=== PATIENT | female | born 1950 | race Two or more races ===

== ENCOUNTER → 2024-05-29 | Outpatient (CLI) | payer OTHER, SELFPAY ==
[2024-05-29 09:09] LABS: Basophils % (Auto) 0 % (0-2.5); Eosinophils % (Auto) 1 % (0-10); Hematocrit 45.6 % (36.0-46.0); Hemoglobin 14.9 g/dL (12.0-16.0); Immature Granulocytes % (Auto) 1 % (0-0); Immature Granulocytes Auto 0.03 Thou/mm3 (0.00-0.00); Lymphocytes # (Auto) 0.9 Thou/mm3 (1.0-4.8); Lymphocytes % (Auto) 17 % (10-50); Mean Corpuscular HGB Conc 32.7 g/dl (31.0-37.0); Mean Corpuscular Hemoglobin 28.7 pg (25.0-35.0); Mean Corpuscular Volume 88 fL (80-100); Monocytes # (Auto) 0.7 Thou/mm3 (0.0-0.8); Monocytes % (Auto) 14 % (0-12); Neutrophils # (Auto) 3.4 Thou/mm3 (1.8-7.7); Neutrophils % (Auto) 68 % (37-80); Nucleated Red Blood Cell % 0 /100 WBC (0); Platelet Count 139 Thou/mm3 (140-440); RDW Standard Deviation 48.3 fL (36.4-46.3)
[2024-05-29 09:32] LABS: Glucose Estimated Average 114 mg/dL (80-131); Hemoglobin A1C 5.6 % Hgb (4.8-6.0)
[2024-05-29 09:37] LABS: Vitamin B12 524 pg/mL (211-911)
[2024-05-29 09:43] LABS: Alanine Aminotransferase 17 U/L (10-49); Albumin, Serum 4.6 gm/dL (3.4-4.8); Albumin/Globulin Ratio 2.2 (1.2-2.2); Alkaline Phosphatase 93 U/L (46-116); Anion Gap 7 (7-16); Aspartate Amino Transferase 13 U/L (0-34); BUN/Creatinine Ratio 16 Ratio (12-20); Bilirubin,Total 0.6 mg/dL (0.3-1.2); Blood Urea Nitrogen 11 mg/dL (9-23); Calcium 9.7 mg/dL (8.3-10.6); Calcium (Corrected) 9.7 mg/dL (8.5-10.1); Cardiac Risk Estimate 2.7 RATIO (3.7-5.6); Chloride 103 mMol/L (98-107); Cholesterol 173 mg/dL (132-200); Creatinine (Component) 0.7 mg/dL (0.6-1.3); Free T4 (Free Thyroxine) 1.16 ng/dL (0.89-1.76); Globulin 2.1 gm/dL (2.3-3.5); Glucose 109 mg/dL (74-106); HDL Cholesterol 63 mg/dL (40-60); LDL Cholesterol,Calculated 91 mg/dL (0-130); Osmolality,Calculated 277 (275-295); Potassium 3.7 mMol/L (3.4-5.1); Sodium 139 mMol/L (136-145); Thyroid Stimulating Hormone 0.82 uIU/mL (0.55-4.78); Total Protein 6.7 gm/dL (5.7-8.2); Triglycerides 97 mg/dL (30-150); eGFR > 60 See Note
== END | disposition home or self-care (01) ==
LOC: COPL 08:07
PROVIDERS: PCP Family Medicine; Referring Provider Psychiatry & Neurology Neurology; Visit Provider Psychiatry & Neurology Neurology
DX: R41.3 Other amnesia (principal); I10 Essential (primary) hypertension; E78.5 Hyperlipidemia, unspecified
CPT/HCPCS: 36415; 80053; 80061; 82306; 82607; 83036; 84439; 84443; 85025

== ENCOUNTER → 2024-06-25 | Outpatient (CLI) | payer OTHER, SELFPAY ==
--- NOTE | 2024-06-25 10:38 | XR_ITS ---
Examination: MRI brain without intravenous contrast. Date and time of exam: June 25, 2024 1138 hrs. Indications: Increasing confusion one year Technique: Multiple axial and sagittal images of the brain obtained. Siemens high-resolution 1.5 Jennifer short bore scanners utilized. Sagittal sections, T1-weighted, TR 500, TE 14, are performed. Axial sections proton-density and T2-weighted have been obtained. Inversion recovery axial images, TR 9, 260, TE 111, TI 2500. Diffusion weighted images, axial sections, TR 4800, TE 128, B value 1000 Axial sections, ADC map, TR 4800, TE 128 Findings: Enlargement of the sella turcica is not present. The optic chiasm and infundibular are not remarkable. Prepontine and interpeduncular cisterns are not enlarged. There is no localized enlargement of the medulla or deondre. Fourth ventricle and cerebellar tonsils appear normal in position. No subacute area of hemorrhage density is seen. Mass in the cerebellopontine angle region is not evident. Globes symmetrical. Orbital musculature including medial lateral rectus muscles do not exhibit abnormality. Diffusion-weighted images demonstrate no focus of restricted diffusion. Increased white matter signal moderate Mass effect upon the ventricular system is not identified. Impression: Negative for acute hemorrhage mass effect or midline shift No acute infarct Moderate chronic microvascular white matter change
== END | disposition home or self-care (01) ==
LOC: SMRI 10:22
PROVIDERS: PCP Family Medicine; Referring Provider Psychiatry & Neurology Neurology; Visit Provider Psychiatry & Neurology Neurology
DX: R90.82 White matter disease, unspecified (principal)
CPT/HCPCS: 70551

== ENCOUNTER → 2024-11-20 | Outpatient (CLI) | payer OTHER, SELFPAY ==
[2024-11-20 16:28] LABS: Alanine Aminotransferase 48 U/L (10-49); Albumin, Serum 4.2 gm/dL (3.4-4.8); Albumin/Globulin Ratio 1.7 (1.2-2.2); Alkaline Phosphatase 135 U/L (46-116); Anion Gap 9 (7-16); Aspartate Amino Transferase 26 U/L (0-34); BUN/Creatinine Ratio 16 Ratio (12-20); Bilirubin,Total 0.4 mg/dL (0.3-1.2); Blood Urea Nitrogen 14 mg/dL (9-23); Calcium 9.4 mg/dL (8.3-10.6); Calcium (Corrected) 9.4 mg/dL (8.5-10.1); Carbon Dioxide 27.0 mMol/L (20.0-31.0); Chloride 108 mMol/L (98-107); Creatinine (Component) 0.9 mg/dL (0.6-1.3); Globulin 2.5 gm/dL (2.3-3.5); Glucose 88 mg/dL (74-106); Osmolality,Calculated 286 (275-295); Potassium 3.9 mMol/L (3.4-5.1); Sodium 144 mMol/L (136-145); Total Protein 6.7 gm/dL (5.7-8.2); eGFR > 60 See Note
== END | disposition home or self-care (01) ==
LOC: COPL 15:18
PROVIDERS: PCP Family Medicine; Referring Provider Psychiatry & Neurology Neurology; Visit Provider Psychiatry & Neurology Neurology
DX: Z01.89 Encounter for other specified special examinations (principal)
CPT/HCPCS: 36415; 80053

== ENCOUNTER 2025-01-29 07:28 | Emergency (ER) | payer OTHER, SELFPAY ==
[2025-01-29 07:39] VITALS: BP 152/82; PULSE 70; RESP 18; TEMP 36.4; O2SAT 97; BMI 25.7
--- NOTE | 2025-01-29 07:49 | XR_ITS ---
Examination: Ribs, right, with PA chest, 5 views Technique: Chest PA, RIBS AP, RPO, LPO, AP coned lower ribs 5 views Exam date and time: January 29, 2025, 0752 hours INDICATIONS: Patient fell 2 days ago with injury to the right chest, right rib pain Findings: Normal heart size No pneumothorax. Moderate osteopenia Acute fracture right eighth rib posteriorly IMPRESSION: No pneumothorax. Acute nondisplaced fracture right eighth rib posteriorly
--- NOTE | 2025-01-29 07:49 | XR_ITS ---
Examination: Thoracic spine 3 views TECHNIQUE: AP lateral coned lateral upper dorsal spine 3 views Date and time: January 29, 2025, 0752 hours INDICATIONS: Patient fell 2 days ago with injury to the back, mid back pain. FINDINGS: Adequate alignment thoracic vertebral bodies on the lateral view Minimal wedging T4 vertebral body IMPRESSION: Mild compression T4 vertebral body As clinically warranted, consider CT scan thoracic spine without contrast follow-up
--- NOTE | 2025-01-29 07:58 | PD.EDFALL ---
ED Fall Injury RME/HPI General Chief Complaint: Fall Stated Complaint: FALL; PAIN R) LOWER BACK Time Seen by Provider: 01/29/25 07:35 Source: patient Arrival date/time: 01/29/25 07:28 74-year-old female with a history of hyperlipidemia, hypertension presents to the emergency room with a chief complaint of thoracic back pain and right sided rib pain after a ground-level fall that occurred 2 days ago. Patient denies any head injury. Mode of arrival: ambulatory Limitations: no limitations Related Data Home Medications ?Medication ?Instructions ?Recorded ?Confirmed lisinopril 5 mg tablet 5 mg PO QDAY #0 tabs 09/20/15 04/15/21 atorvastatin 40 mg tablet 40 mg PO HS 04/10/20 04/15/21 Previous Rx's ?Medication ?Instructions ?Recorded ibuprofen 600 mg tablet 600 mg PO Q8H PRN fever or pain 01/29/25 #20 tabs Allergies Allergy/AdvReac Type Severity Reaction Status Date / Time No Known Allergies Allergy Verified 01/29/25 07:33 Review of Systems Review of Systems Systems Reviewed: All systems reviewed, normal except as documented Constitutional Constitutional: Reports system reviewed and no additional complaints, except as documented, Denies fatigue, Denies fever(s), Denies headache(s) and Denies weakness Eyes Eyes: Reports system reviewed and no additional complaints, except as documented, Denies blurry vision and Denies change in vision ENT Ears, Nose, Mouth, and Throat: Reports system reviewed and no additional complaints, except as documented, Denies otalgia, Denies headache(s), Denies nasal congestion, Denies throat swelling and Denies vertigo Cardiovascular Cardiovascular: Reports system reviewed and no additional complaints, except as documented, Denies chest pain, Denies dyspnea and Denies dyspnea on exertion Respiratory Respiratory: Reports system reviewed and no additional complaints, except as documented, Denies chest congestion, Denies cough, Denies dyspnea, Denies dyspnea on exertion and Denies wheezing Gastrointestinal Gastrointestinal: Reports system reviewed and no additional complaints, except as documented, Denies abdominal pain, Denies cramping, Denies nausea and Denies vomiting Genitourinary Genitourinary: Reports system reviewed and no additional complaints, except as documented Musculoskeletal Musculoskeletal: Reports system reviewed and no additional complaints, except as documented and Denies back pain Integumentary/Breasts Skin/Breast: Reports system reviewed and no additional complaints, except as documented and Denies wounds Neurologic Neurologic: Reports system reviewed and no additional complaints, except as documented, Denies confusion, Denies headache(s), Denies lack of coordination, Denies vertigo and Denies weakness Psychiatric Psychiatric: Reports system reviewed and no additional complaints, except as documented, Denies anxiety, Denies confusion, Denies depression, Denies paranoia, Denies suicidal ideation and Denies tactile hallucinations Endocrine Endocrine: Reports system reviewed and no additional complaints, except as documented and Denies fatigue Hematologic/Lymphatic Hematologic/Lymphatic: Reports system reviewed and no additional complaints, except as documented and Denies lymphadenopathy Allergic/Immunologic Allergic/Immunologic: Reports system reviewed and no additional complaints, except as documented, Denies throat swelling, Denies urticaria and Denies wheezing ED Exam General Limitations: Present no limitations General appearance: Present alert and in no apparent distress Head Head exam: Present atraumatic Eye Eye exam: Present normal appearance, PERRL and EOMI ENT ENT exam: Present normal exam, normal oropharynx and mucous membranes moist Neck Neck exam: Present normal inspection, full ROM and trachea midline Chest Chest inspection: Present normal inspection and symmetric chest wall rise Expanded Chest Exam Trauma: Absent crepitus, laceration, abrasion, ecchymosis, wound, penetrating wound or surgical incision Breast: right: tenderness Respiratory Respiratory exam: Present normal lung sounds bilaterally; Absent respiratory distress, wheezes, stridor, accessory muscle use or prolonged expiratory phase Cardiovascular Cardiovascular exam: Present regular rate, normal rhythm and normal heart sounds Abdominal Exam Abdominal exam: Present soft and normal bowel sounds Extremities Exam Extremities exam: Present normal inspection and full ROM Back Exam Back exam: Present normal inspection and full ROM Neurological Exam Neurological exam: Present alert, oriented X3 and CN II-XII intact Psychiatric Psychiatric exam: Present normal affect and normal mood Skin Skin exam: Present warm, dry, intact and normal color Course Quality Measures none Orders Category Date Time Status XR ribs RT min 3V w CXR1V Stat Exams 01/29/25 07:49 Completed XR thoracic spine 3V Stat Exams 01/29/25 07:49 Completed Ibuprofen Tab [Motrin Tab] Med 01/29/25 07:50 Discontinued 600 mg PO X1 ONE Vital Signs Vital signs: Vital Signs Temperature 97.5 F 01/29/25 07:39 Pulse Rate 70 01/29/25 07:39 Respiratory Rate 18 01/29/25 07:39 Blood Pressure 152/82 H 01/29/25 07:39 Pulse Oximetry (%) 97 01/29/25 07:39 Oxygen Delivery Method Room Air 01/29/25 07:39 Fall MDM Narrative MDM Narrative:: 74-year-old female with a history of hyperlipidemia, hypertension presents to the emergency room with a chief complaint of thoracic back pain and right sided rib pain after a ground-level fall that occurred 2 days ago. Patient denies any head injury. Patient is hemodynamically stable and in no apparent distress Physical examination shows tenderness and pain to the patient's right rib cage as well as the thoracic area of the patient's spine. Patient's lung sounds are clear bilaterally there is no wheezing or any abnormal breath sound. X-ray of the right ribs show an acute nondisplaced fracture of the right eighth rib posteriorly. There is also a mild compression at the T4 level of the thoracic spine. Patient was educated to follow-up with her primary care provider for further management. An incentive spirometer was given to the patient Patient was discharged and educated to follow-up with primary care provider in the next 24 to 48 hours and return to the emergency room for any evidence of worsening signs or symptoms Patient data External records reviewed:: [facility] previous records Clinical information provided by:: patient Social determinants that could affect healthcare access:: none Patient has the following chronic illnesses:: No chronic illness How is presenting disease/condition affected by chronic disease/condition?: no chronic disease Evaluation data The following diagnostics were reviewed and interpreted by me:: lab results and radiology exam(s) Lab and/or radiology exams considered but not ordered:: Labs and radiology exams considered and ordered Interpretation Summary: X-ray ribs-Findings: Normal heart size No pneumothorax. Moderate osteopenia Acute fracture right eighth rib posteriorly IMPRESSION: No pneumothorax. Acute nondisplaced fracture right eighth rib posteriorly X-ray thoracic-FINDINGS: Adequate alignment thoracic vertebral bodies on the lateral view Minimal wedging T4 vertebral body IMPRESSION: Mild compression T4 vertebral body As clinically warranted, consider CT scan thoracic spine without contrast follow-up Medications / Prescriptions Medications or Prescriptions considered but not ordered:: Medication given Medication administrations:: Medication Administration History Discontinued Medications Ibuprofen (Ibuprofen Tab 600 Mg Tablet) 600 mg PO X1 ONE Stop: 01/29/25 07:51 Last Admin: 09/30/25 08:20 Dose: 600 mg Documented By: EARL Medication given Consultations Consultation(s) initiated? (list below): No Diagnosis Fall Differential Diagnosis: other (Rib fracture/rib contusion/pneumothorax/hemothorax) Most likely diagnosis given after review of the tests above:: Rib fracture Admission Indicated Admission indicated?: not indicated Admission Request Was there a request for admission?: No Disposition Plan Disposition Plan: Discharge Discharge Attestation Discharge Attestation: The patient and all family members were given an opportunity to ask questions and understood the discharge instructions. Discharge instructions specifically effects, indications for sooner follow up or return to the emergency department, and the expected course of current diagnosis. Patient condition: Stable Discharge Plan Plan Patient Disposition: HOME (Self Care) Discharge Disposition comment: Stable Prescriptions/Referrals Prescriptions/Med Rec: New ibuprofen 600 mg tablet 600 mg PO Q8H PRN (Reason: fever or pain) Qty: 20 0RF No Action lisinopril 5 MG tablet 5 mg PO QDAY Qty: 0 atorvastatin 40 mg tablet 40 mg PO HS Patient Comments: TAKE 1 TABLET BY MOUTH ONCE DAILY Referrals: Clay Brambila MD [Primary Care Provider, Family Practice] - In 1 week Problem List Clinical Impression: Closed rib fracture Patient/Caregiver Discharge Instructions Education Materials: ED Rib Fracture, ED Rib Contusion or Minor Fracture Additional Instructions: Please follow-up with your primary care provider in the next 24 to 48 hours The x-ray of your right ribs show a rib fracture of your eighth rib. Please follow-up with your primary care provider for further management For any evidence of worsening signs or symptoms return to the emergency room immediately Print Language: Arabic Stand Alone Forms: [employer] Award Info., Patient Portal Info Letter WILFREDO/ANITRA Supervising Physician WILFREDO/ANITRA Supervising Physician: Dr. Purcell
[2025-01-29] MEDS: IBUPROFEN TAB 600 MG TABLET PO (08:20)
== END 2025-01-29 10:15 | disposition home or self-care (01) ==
PROVIDERS: Emergency Provider Family Medicine; PCP Family Medicine
DX: S22.31XA Fracture of one rib, right side, initial encounter for closed fracture (principal); S22.040A Wedge compression fracture of fourth thoracic vertebra, initial encounter for closed fracture; W18.30XA Fall on same level, unspecified, initial encounter
CPT/HCPCS: 71101; 72072; 99283; A9270

== ENCOUNTER → 2025-03-26 | Outpatient (CLI) | payer OTHER, SELFPAY ==
--- NOTE | 2025-03-26 13:00 | XR_ITS ---
Examination: Bone densitometry Date and time of exam: March 26, 2025, 1401 hours INDICATIONS: Menopause age 59, post menopausal right rib fractures Technique: Lumbar spine and hip total bone mineralization values of an calculated. Peak reference and age match control results have been displayed. Findings: Lumbar spine total bone mineralization is 1.059 gm/cm2. This is 0.1 standard deviations above peak reference. This is 2.6 standard deviations above age-matched controls. Hip total bone mineralization is 0.825 gm/cm2 This is 1.0 standard deviations below peak reference. This is 0.8 standard deviations above age-matched controls Impression: There is normal mineralization based on lumbar spine measurements. There is osteopenia based on hip measurements Lumbar mineralization is increased 3.8% compared with June 09, 2006 Hip mineralization is decreased 9.9% compared with June 09, 2006
--- NOTE | 2025-03-26 13:15 | XR_ITS ---
Examination: Screening digital mammography, bilateral Computer aided detection 3-D breast Tomosynthesis, bilateral Date and time of exam: March 26, 2025, 1332 hours, compared to mammograms dating to September 27, 2019 Indication: Screening Technique: Nonmagnified MLO, CC views of the breasts to been obtained, reconstructed from 3-D Tomosynthesis images. R2 computer aided detection program utilized for evaluation of suspicious masses and/or abnormal calcifications. 3-D Tomosynthesis images obtained. Findings: Scattered areas of fibroglandular density Stable numerous bilateral benign calcifications. Breast biopsy marker upper outer right breast No interval suspicious masses Impression: BI-RADS category II: Benign Findings. Recommend 1 year follow-up mammogram.
== END | disposition home or self-care (01) ==
PROVIDERS: PCP Family Medicine; Referring Provider Family Medicine; Visit Provider Family Medicine
DX: Z12.31 Encounter for screening mammogram for malignant neoplasm of breast (principal); R92.323 Mammographic fibroglandular density, bilateral breasts; M85.88 Other specified disorders of bone density and structure, other site; M85.89 Other specified disorders of bone density and structure, multiple sites
CPT/HCPCS: 77063; 77067; 77080